=== PATIENT | male | born 1960 | race Two or more races ===

== ENCOUNTER 2018-12-06 14:43 | Emergency (ER) | payer MEDICARE ==
[2018-12-06 15:21] VITALS: BP 114/71
--- NOTE | 2018-12-06 15:33 | UC ---
Back Pain HPI - HPI Summary HPI Summary: 58 yo male presents with low back pain. He tells me that he has a significant history of lower back problems and is on disability for his back pain. Over the last week has had increasing pain with radiation of pain into his left leg. He has not taken anything OTC for his pain. He denies specific injury, numbness, tingling, saddle anesthesia, or loss of bowel/bladder control. - History of Current Complaint Chief Complaint: UCBackPain Stated Complaint: BACK PAIN Time Seen by Provider: 12/06/18 15:31 Hx Obtained From: Patient Onset/Duration: Gradual Onset Timing: Constant Severity Initially: Severe Severity Currently: Severe Pain Intensity: 10 Pain Scale Used: 0-10 Numeric - Allergies/Home Medications Allergies/Adverse Reactions: Allergies Allergy/AdvReac Type Severity Reaction Status Date / Time bee venom protein (honey bee) Allergy Severe VOMITING, Verified 12/06/18 15:21 DROWSINESS PMH/Surg Hx/FS Hx/Imm Hx - Additional Past Medical History Additional PMH: Chronic low back pain Endocrine History: Hypothyroidism, Dyslipidemia Cardiovascular History: Hypertension Other History Of: Negative For: Anticoagulant Therapy - Surgical History Surgical History: Yes Surgery Procedure, Year, and Place: Left Knee Surgery; Septoplasty; Right Inguinal Hernia Repair; Tonsillectomy September 2012 - Family History Known Family History: Positive: Unknown - Social History Occupation: Disabled Lives: Alone Alcohol Use: None Substance Use Type: None Smoking Status (MU): Never Smoked Tobacco Review of Systems All Other Systems Reviewed And Are Negative: Yes Constitutional: Positive: Negative Skin: Positive: Negative Respiratory: Positive: Negative Cardiovascular: Positive: Negative Gastrointestinal: Positive: Negative Genitourinary: Positive: Negative Neurovascular: Positive: Negative Musculoskeletal: Positive: Other: - Low back pain Neurological: Positive: Negative Psychological: Positive: Negative Physical Exam - Summary Physical Exam Summary: GENERAL: NAD. WDWN. No pain distress. SKIN: No rashes, sores, lesions, or open wounds. NECK: Supple. FROM. Nontender. No lymphadenopathy. CHEST: CTAB. No r/r/w. No accessory muscle use. Breathing comfortably and in no distress. CV: RRR. Without m/r/g. Pulses intact. Cap refill <2seconds ABDOMEN: Soft. NTTP. Mild left CVA tenderness. Bowel sounds present MSK: TTP over lumbar paraspinal muscles LEFT > RIGHT. Pain with flexion and extension of spine. Positive SLR LEFT for low back pain without radiation. Strength 5/5 B/L LEs including dorsiflexion and plantar flexion. FROM B/L LEs. No edema. NEURO: Alert. Sensations intact B/L LEs L3-S1. Reflexes intact PSYCH: Age appropriate behavior. Triage Information Reviewed: Yes Vital Signs: Initial Vital Signs Temp 97 F 12/06/18 15:15 Pulse 87 12/06/18 15:15 Resp 16 12/06/18 15:15 BP 114/71 12/06/18 15:15 Pulse Ox 97 12/06/18 15:15 Laboratory Tests 12/06/18 16:21 POC Urine Color Dark yellow POC Urine Clarity Clear POC Urine pH 5.0 POC Ur Specif [place] 1.025 POC Urine Protein Trace A POC Ur Glucose (UA) Negative POC Urine Ketones Negative POC Urine Blood Negative POC Urine Nitrite Negative POC Urine Bilirubin Negative POC Urine Urobilinogen 0.2 POC U Leukocyte Esteras Negative Vital Signs Reviewed: Yes Back Pain Course/Dx - Course Course Of Treatment: Given pt's chronic low back pain with current exacerbation and left CVA tenderness. Will order for CT to assess for renal calculi. UA negative. CT abd/pel: IMPRESSION: Bilateral is likely right the left There is likely hepatic steatosis noted. No evidence of obstructive uropathy is identified. There is degenerative changes at multiple levels of the lumbar spine. Suspect MSK low back pain. He was given toradol 60mg IM in the clinic and reported feeling improvement of his pain. Will rx for flexeril and naproxen and have him f/u with his PCP next week for a recheck . - Differential Dx/Diagnosis Provider Diagnosis: Low back pain Discharge - Sign-Out/Discharge Documenting (check all that apply): Patient Departure All imaging exams completed and their final reports reviewed: Yes - Discharge Plan Condition: Stable Disposition: HOME Prescriptions: Cyclobenzaprine TAB* [Flexeril 10 MG TAB*] 10 mg PO TID PRN #21 tab PRN Reason: Pain Naproxen [Naproxen 500 mg tab] 500 mg PO BID PRN #20 tablet.dr MELENDEZ Reason: Pain Patient Education Materials: Back Pain (ED) Referrals: Rasheed Lopez MD [Primary Care Provider] - 1 Week Additional Instructions: If you develop a fever, shortness of breath, chest pain, new or worsening symptoms - please call your PCP or go to the ED immediately. 1) Rest and apply heat to your lower back to decrease pain 2) Take the muscle relaxers to decrease pain 3) I recommend that you follow up with your primary doctor early next week for a recheck of your symptoms. - Billing Disposition and Condition Condition: STABLE Disposition: Home
[2018-12-06] MEDS ORDERED: Ketorolac INJ* 60 MG/2 ML VIAL IM ONE (15:43)
== END 2018-12-06 16:45 | disposition home or self-care (01) ==
LOC: UCEAST 14:43
DX: M54.5 Low back pain (principal); E78.5 Hyperlipidemia, unspecified; E03.9 Hypothyroidism, unspecified
CPT/HCPCS: 74176; 81003; 96372; 99212; G0463; J1885